=== PATIENT | female | born 1970 | race Caucasian/White ===

== ENCOUNTER 2019-01-11 13:50 | Emergency (ER) | payer MEDICAID ==
[~2019-01-11] VITALS: Ht 172.7 cm; Wt 71.8 kg
[2019-01-11 14:00] VITALS: BP 157/55
[2019-01-11] MEDS ORDERED: GABA-529 PO (14:00)
== END 2019-01-11 14:36 | disposition home or self-care (01) ==
LOC: EMS 13:59
DX: F41.9 Anxiety disorder, unspecified (principal); M25.551 Pain in right hip; R03.0 Elevated blood-pressure reading, without diagnosis of hypertension; Z76.0 Encounter for issue of repeat prescription; Z79.899 Other long term (current) drug therapy